=== PATIENT | male | born 1955 | race Caucasian/White ===

== ENCOUNTER 2017-01-15 13:40 | Day surgery (SDC) | payer OTHER ==
[~2017-01-15] VITALS: Ht 177.8 cm; Wt 90.7 kg
[~2017-01-15 13:40] MED LIST: 0.9% Sodium Chloride 1,000 ML IV SCH; ATEN100T PO; GLPZ5T PO; LISI-571 PO; METF500T4 PO; Sodium Chloride LOK Flush 10 mL Syringe IV PRN; fentaNYL-PF 50 mCg/mL 2 mL Inj IVPUSH PRN
[2017-01-15 14:36] VITALS: BP 150/106; PULSE 74; O2SAT 95
[2017-01-15 16:36] VITALS: BP 146/93; PULSE 65; RESP 16; O2SAT 94
[2017-01-15 16:46] VITALS: BP 163/101; PULSE 67; RESP 16; O2SAT 94
--- NOTE | 2017-01-15 17:24 | ENDO ---
[address] [address] ENDOSCOPY PROCEDURE PATIENT: JANETT ESQUEDA : 1955 MR#: [id number] ADMIT: 01/15/2017 JOB ID: [id number] PROCEDURE: Esophagogastroduodenoscopy (EGD). INDICATION: Patient with a chronic history of chronic hepatitis C. Patient's ASA classification is two. Mallampati score is two. MEDICATIONS: Versed 5 mg, fentanyl 125 mcg. INSTRUMENT USED: GIF H 180 J. PROCEDURE DETAILS: After informed consent was obtained, the patient was brought into the GI suite where he was placed on oxygen via nasal cannula and monitored with continuous pulse oximeter, telemetry, and blood pressure monitoring. A time-out was performed, then he was placed in the left lateral decubitus position and medications were administered for sedation. A bite block was placed. The esophagogastroduodenoscopy scope was inserted through the bite block and advanced under direct visualization to the second portion of the duodenum without difficulty. FINDINGS: 1. In the duodenal bulb there was erythema and edema of the mucosa suggestive of duodenitis. Multiple biopsies were obtained. The remainder of the duodenal exam was otherwise unremarkable. 2. Normal-appearing pylorus, antrum, and gastric body. 3. Retroflexed views in the gastric body revealed a normal-appearing cardia and fundus. 4. Normal-appearing GE junction with a regular Z-line at 42 cm. 5. Normal appearing esophagus. IMPRESSION: Inflammation in the duodenal bulb. Otherwise normal exam to the second portion of the duodenum. RECOMMENDATIONS: 1. Await biopsy results. 2. Proceed to colonoscopy. COMPLICATIONS: None. ESTIMATED BLOOD LOSS: Less than 5 mL. PROCEDURE PERFORMED: Colonoscopy. INDICATION: Colon cancer screening. ANESTHESIA: Please see above for ASA classification, Mallampati score, and medications. INSTRUMENT USED: PCF H 190 DL. PREPARATION QUALITY: Fair. PROCEDURE DETAILS: After completion of the EGD, the patient was turned and then a digital rectal exam was performed which was unremarkable. The colonoscope was then inserted into the rectum and advanced under visualization to the cecum, which was identified by the presence of the ileocecal valve and the appendiceal orifice. Once the cecum was reached, the colonoscope was withdrawn back into the rectum as the mucosa and lumen were examined. In the rectum, retroflexion was performed. Following retroflexion, the remaining air in the rectum was suctioned and the procedure was completed. FINDINGS: 1. On retroflexed views there was an approximately 3-4 mm sessile polyp that was removed with a cold snare. 2. Otherwise normal exam from rectum to cecum. IMPRESSION: Rectal polyp. RECOMMENDATIONS: Repeat colonoscopy pending polyp pathology results. COMPLICATIONS: None. ESTIMATED BLOOD LOSS: Less than 5 mL.
--- NOTE | 2017-01-18 14:30 | PATH ---
SURGICAL PATHOLOGY Attending Physician:Shani Bateman CASE STATUS: Signed Out PATIENT NAME: JANETT ESQUEDA PID: [id number] : 1955 DATE COLLECTED:01/15/2017 00:00 SPECIMEN: 1: Duodenum, Biopsy 2: Gastric, Biopsy 3: Rectum, Biopsy CLINICAL HISTORY: 1). DUODENAL BIOPSY 2). GASTRIC BIOPSY 3). RECTAL POLYP FINAL DIAGNOSIS: 1.DUODENUM, BIOPSY: NO DIAGNOSTIC ABNORMALITY. Negative for intraepithelial lymphocytosis, villous blunting, or other features of celiac sprue. Negative for Giardia organisms, dysplasia and malignancy. 2.GASTRIC BIOPSY: GASTRIC CORPUS AND ANTRUM WITH MILD CHRONIC GASTRITIS. Negative for Helicobacter organisms. Negative for intestinal metaplasia. No evidence of dysplasia or malignancy. 3.RECTAL POLYP: HYPERPLASTIC POLYP. ICD10 K29.70 D12.6 GROSS DESCRIPTION: The specimens are received in formalin, labeled with the patient's name and sublabeled as the following: (1) duodenal BX; (2) gastric BX; (3) rectal polyp (1) The specimen consists of multiple fragments of longo-white, glistening, rubbery, semi-translucent tissue (0.9 x 0.2 x 0.1 cm in aggregate). Section code: (1A) tissue. Specimen entirely submitted. (2) The specimen consists of multiple fragments of longo-white, glistening, rubbery, semi-translucent tissue (0.8 x 0.3 x 0.1 cm in aggregate). Section code: (2A) tissue. Specimen entirely submitted. (3) The specimen consists of a fragment of clear colorless glistening, tissue (0.3 x 0.1 by less than 0.1 cm). Section code: (3A) tissue. Specimen entirely submitted. ([id number]) MICRO DESCRIPTION: See diagnosis. ICD-9 CODES: CPT CODES: 1: 05641 2: 40133 3: 13589 Electronically Signed Out Raymon Millan MD [facility] [address], [place] [address] Technical component performed at [facility], [address], [place], [address]
== END 2017-01-15 23:59 | disposition home or self-care (01) ==
LOC: END 13:40
PROVIDERS: ATTEND Internal Medicine Gastroenterology
DX: Z12.11 Encounter for screening for malignant neoplasm of colon (principal); K62.1 Rectal polyp; B18.2 Chronic viral hepatitis C; K29.50 Unspecified chronic gastritis without bleeding; E11.9 Type 2 diabetes mellitus without complications; I10 Essential (primary) hypertension
CPT/HCPCS: 43239; 45385; 88305; 99153; G0500; J2250; J3010; J7030